=== PATIENT | male | born 1960 | race Caucasian/White ===

== ENCOUNTER 2020-01-26 05:38 | Emergency (ER) | payer BC, SELFPAY ==
[2020-01-26 05:42] VITALS: BP 102/81; PULSE 84; RESP 20; TEMP 36.6; O2SAT 97; BMI 31.0
--- NOTE | 2020-01-26 05:50 | CTR_ITS ---
PROCEDURE INFORMATION: Exam: CT Abdomen And Pelvis With Contrast Exam date and time: 01/26/2020 6:08 AM Age: 59 years old Clinical indication: Other: Blood in stool; Patient HX: Onset of severe low back pain with bloody stool yesterday. ; Additional info: Lower gi bleed TECHNIQUE: Imaging protocol: Computed tomography of the abdomen and pelvis with intravenous contrast. Radiation optimization: All CT scans at this facility use at least one of these dose optimization techniques: automated exposure control; mA and/or kV adjustment per patient size (includes targeted exams where dose is matched to clinical indication); or iterative reconstruction. Contrast material: OMNI 300; Contrast volume: 95 ml; Contrast route: INTRAVENOUS (IV); COMPARISON: No relevant prior studies available. RADIATION DOSE METRICS: Total DLP (mGy-cm): 1166.1 FINDINGS: Lungs: Tiny benign calcified granulomas are present in the lung bases. Mediastinal space: There is a small sliding hiatal hernia. Liver: There is an 8 mm benign cyst in the right lobe of the liver which is otherwise unremarkable.. No other mass. Gallbladder and bile ducts: Normal. No calcified stones. No ductal dilation. Pancreas: Normal. No ductal dilation. Spleen: Normal. No splenomegaly. Adrenals: Normal. No mass. Kidneys and ureters: Tiny vascular calcifications are present in the kidneys. There is no other nephrolithiasis. No renal masses are seen.. No hydronephrosis. Stomach and bowel: There is sigmoid diverticulosis. There is mild mural thickening of the descending and proximal sigmoid colon which may represent a colitis possibly infectious in nature. There is no other evidence of acute diverticulitis. There is no evidence of bowel obstruction.. Appendix: No evidence of appendicitis. Intraperitoneal space: Unremarkable. No free air. No significant fluid collection. Vasculature: There are atherosclerotic calcifications in the aorta and iliac arteries. No abdominal aortic aneurysm. Lymph nodes: Unremarkable. No enlarged lymph nodes. Urinary bladder: Unremarkable as visualized. Reproductive: Unremarkable as visualized. Bones/joints: Degenerative changes are present in the lumbar spine with scattered sclerosis and osteophytes. There is mild diffuse bulging of the L4-L5 disc. Soft tissues: Small fat containing inguinal hernias are present. CT/CT abdomen pelvis w con* [id number] IMPRESSION: 1. Sigmoid diverticulosis no definite focal diverticulitis. 2. Mural thickening of the descending and sigmoid colon consistent with colitis possibly infectious. 3. 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 4. Small hiatal hernia. Small bilateral inguinal hernias. Radiation Dose CTDIVOL = (mGy): DLP = 1166.1 (mGy-cm)
--- NOTE | 2020-01-26 05:59 | ED_ITS ---
HPI - GI Bleed General: Chief complaint: GI Bleed Stated complaint: back pain Time Seen by Provider: 01/26/20 05:50 History of Present Illness: HPI Narrative: 59-year-old male presents to the emergency room with complaints of blood in the stool he also has a lot of back pain he has had problems with chronic back pain in the past from the time is seem to pull muscles which caused severe back pain he does not have any pain radiating into his legs he denies any fecal incontinence or urinary retention. He is not had any vomiting or diarrhea but with several stools he has had some streaking of blood but is not discolored the toilet bowl. Is not noticed that he is passed any large clots. He is not on any anticoagulants. He is not previously been evaluated for blood loss. MD complaint: blood streaked stool Onset (ago): hour(s) Relieving factors: none Exacerbating factors: none Associated symptoms: Denies abdominal pain, chills, easy bruising, epistaxis, fever(s), headache(s), malaise, nausea, other bleeding, poor appetite, rash, syncope, vomiting or weakness Treatments Prior to Arrival: none Review of Systems Const: Denies: fever(s), chills or malaise ENMT: Denies: epistaxis Card: Denies: syncope Resp: Denies: dyspnea, productive cough or non-productive cough GI: Denies: abdominal pain, nausea or vomiting : Denies: flank pain, dysuria, urinary frequency or urinary urgency Skin/Breast: Denies: rash Neuro: Denies: headache(s) Zaid/Lymph: Denies: easy bruising [facility] ED PFSH: Medical History Chronic back pain Physical Exam Const: COMMON NORMALS: no acute distress GENERAL APPEARANCE: cooperative and comfortable ORIENTATION/CONSCIOUSNESS: Yes awake, Yes oriented to person, Yes oriented to place and Yes oriented to time HENMT: COMMON NORMALS: normocephalic, atraumatic and hearing grossly normal bilaterally HEAD & SCALP: normocephalic and atraumatic Eye: COMMON NORMALS: Equal, round and reactive pupils present, EOMs intact bilaterally, conjunctivae normal and no scleral icterus CONJUNCTIVA: Yes conjunctivae normal PUPIL: Yes Equal, round and reactive pupils present Neck/C-Spine: COMMON NORMALS: full ROM, no lymphadenopathy, supple and no JVD Resp: COMMON NORMALS: normal respiratory effort, No retractions, No use of accessory muscles and clear to auscultation bilaterally AUSCULTATION: clear to auscultation bilaterally Cardio: COMMON NORMALS: no JVD, regular rate, regular rhythm and No murmurs present (Cardio) RATE: regular rate RHYTHM: regular rhythm GI: COMMON NORMALS: Soft to palpation and No hepatosplenomegaly present AUSCULTATION: Yes normoactive bowel sounds PALPATION: Yes Soft to palpation, No Tenderness to palpation present (GI), No Guarding due to palpation present (GI) and Yes No hepatosplenomegaly present Extremity: COMMON NORMALS: normal to inspection, capillary refill normal, no clubbing, cyanosis or edema, no calf tenderness and no pedal edema Neuro: SENSORIUM/ORIENTATION: Yes oriented to person, Yes oriented to place and Yes oriented to time OTHER: Dorsum plantar flex strength 5/5 strength lower extremities normal sensation normal Skin: COMMON NORMALS: no rashes or lesions noted GENERAL SKIN EXAM: no rashes or lesions noted Course Vital Signs: Vital signs: Vital Signs Temperature 97.8 F 01/26/20 05:42 Pulse Rate 78 01/26/20 06:44 Respiratory Rate 16 01/26/20 06:44 Blood Pressure 114/78 01/26/20 06:44 Pulse Oximetry 96 01/26/20 06:44 MDM - GI Bleed MDM Narrative: Medical decision making narrative: Reviewed findings with the patient. Hemoglobin is stable CT shows evidence of colitis. Will treat with Cipro and Flagyl have him follow-up with surgery for colonoscopy sometime in the next 4 to 6 weeks. He tells me seeing either Dr. Encarnacion or Daniella in the past he cannot find a report since we changed over her EMR will have case management set him up for the colonoscopy return if he has worsening bleeding. Lab Data: Labs: Lab Results 01/26/20 01/26/20 01/26/20 Range/Units 05:50 05:50 05:50 WBC 6.7 (4.0-10.0) 10^3/ uL RBC 4.50 (4.1-5.3) 10^6/u L Hgb 14.4 (11.7-16.6) g/dL Hct 44.2 (42.0-52.0) % MCV 98.2 H (80-94) fL MCH 32.0 (28.0-34.0) pg MCHC 32.6 (30.0-36.0) g/dL RDW 12.1 (12.1-15.1) % Plt Count 289 (130-400) 10^3/c mm MPV 9.0 (7.4-10.4) fL Neut % (Auto) 64.6 % Lymph % (Auto) 19.6 % [place] % (Auto) 14.8 % Eos % (Auto) 0.3 % Baso % (Auto) 0.4 % Neut # (Auto) 4.31 (1.8-7.7) 10^3/u L Lymph # (Auto) 1.3 (0.8-4.8) 10^3/u L [place] # (Auto) 1.0 H (0.2-0.9) 10^3/u L Eos # (Auto) 0.0 (0.0-0.8) 10^3/u L Baso # (Auto) 0.0 (0.0-0.1) 10^3/u L Nucleated RBC % (a uto) 0 % Nucleated RBCs # 0.0 /100WBC PT 12.30 (12.1-14.9) SECO NDS INR 0.89 (0.8-1.2) Sodium 135 L (136-145) mmol/L Potassium 4.2 (3.5-5.1) mmol/L Chloride 95 L (98-107) mmol/L Carbon Dioxide 25 (22-29) mmol/L Anion Gap 19.2 H (5-19) BUN 21 H (6-20) mg/dL Creatinine 1.2 (0.7-1.2) mg/dL GFR Calculation 62.2 L (90-130) mL/min Glucose 124 H (65-115) mg/dL Calculated Osmolal ity 284 L (285-295) mOsm/k g Lactate (0.5-2.2) mmol/L Calcium 9.1 (8.5-10.5) mg/dL Total Bilirubin 0.2 (0.15-1.2) mg/dL AST 27 (0-40) U/L ALT 29 (0-41) U/L Alkaline Phosphata se 92 (40-130) IU/L Total Protein 7.6 (6.6-8.7) g/dL Albumin 4.4 (3.5-5.2) g/dL Globulin 3.2 (1.3-4.6) g/dL Urine Color (Yellow) Urine Appearance (CLEAR) Urine pH (5-7) Ur Specific Gravit y (1.005-1.030) Urine Protein (Negative) Urine Glucose (UA) (Normal) Urine Ketones (Negative) Urine Blood (Negative) Urine Nitrate (Negative) Urine Bilirubin (Negative) Urine Urobilinogen (Negative) mg/dL Ur Leukocyte Tanya ase (Negative) Urine RBC (0-2) /hpf Urine WBC (0-5) /hpf Ur Squamous Epith Cells (0-5) /hpf Amorphous Sediment /hpf Urine Bacteria (NONE) /hpf Urine Mucus /hpf 01/26/20 01/26/20 Range/Units 05:50 06:22 WBC (4.0-10.0) 10^3/ uL RBC (4.1-5.3) 10^6/u L Hgb (11.7-16.6) g/dL Hct (42.0-52.0) % MCV (80-94) fL MCH (28.0-34.0) pg MCHC (30.0-36.0) g/dL RDW (12.1-15.1) % Plt Count (130-400) 10^3/c mm MPV (7.4-10.4) fL Neut % (Auto) % Lymph % (Auto) % [place] % (Auto) % Eos % (Auto) % Baso % (Auto) % Neut # (Auto) (1.8-7.7) 10^3/u L Lymph # (Auto) (0.8-4.8) 10^3/u L [place] # (Auto) (0.2-0.9) 10^3/u L Eos # (Auto) (0.0-0.8) 10^3/u L Baso # (Auto) (0.0-0.1) 10^3/u L Nucleated RBC % (a uto) % Nucleated RBCs # /100WBC PT (12.1-14.9) SECO NDS INR (0.8-1.2) Sodium (136-145) mmol/L Potassium (3.5-5.1) mmol/L Chloride (98-107) mmol/L Carbon Dioxide (22-29) mmol/L Anion Gap (5-19) BUN (6-20) mg/dL Creatinine (0.7-1.2) mg/dL GFR Calculation (90-130) mL/min Glucose (65-115) mg/dL Calculated Osmolal ity (285-295) mOsm/k g Lactate 1.9 (0.5-2.2) mmol/L Calcium (8.5-10.5) mg/dL Total Bilirubin (0.15-1.2) mg/dL AST (0-40) U/L ALT (0-41) U/L Alkaline Phosphata se (40-130) IU/L Total Protein (6.6-8.7) g/dL Albumin (3.5-5.2) g/dL Globulin (1.3-4.6) g/dL Urine Color Yellow (Yellow) Urine Appearance Sl hazy (CLEAR) Urine pH 5 (5-7) Ur Specific Gravit y 1.020 (1.005-1.030) Urine Protein Trace (Negative) Urine Glucose (UA) Norm (Normal) Urine Ketones 1+ H (Negative) Urine Blood Neg (Negative) Urine Nitrate Negative (Negative) Urine Bilirubin Neg (Negative) Urine Urobilinogen Norm (Negative) mg/dL Ur Leukocyte Tanya ase Negative (Negative) Urine RBC Rare (0-2) /hpf Urine WBC 0-4 H (0-5) /hpf Ur Squamous Epith Cells 0-4 H (0-5) /hpf Amorphous Sediment 1+ /hpf Urine Bacteria Trace (NONE) /hpf Urine Mucus 2+ /hpf Discharge Plan Discharge Patient Disposition: Home Clinical Impression: Colitis Condition: Stable Prescriptions: New Cipro 500 mg tablet 500 mg PO BID 10 Days Qty: 20 RF: 0 Flagyl 500 mg tablet 500 mg PO Q8H 10 Days Qty: 30 RF: 0 Discharge Orders: Discharge Order (Routine); Ordered 01/26/20 Ordered By: Johny Pickard Referrals: Liborio Zhang MD [Primary Care Provider] - Discharge Diet: Usual diet Discharge Activity: Increase activity as tolerated Activity Restrictions/Additional Instructions: Clear liquid diet for 48 hours then advance. Follow-up with primary care provider you should have a colonoscopy done sometime in the next few months after this has resolved. Return if worsens. Coding Level of Care Code ED Technology Adoption Manager for Chg Fwd Exam Comprehensive
[2020-01-26] MEDS: sodium chloride 0.9% 500 ML IV (06:09)
[2020-01-26 06:15] LABS: Basophils % 0.4 %; Eosinophils % 0.3 %; Hematocrit 44.2 % (42.0-52.0); Hemoglobin 14.4 g/dL (11.7-16.6); Lymphocytes # 1.3 10^3/uL (0.8-4.8); Lymphocytes % 19.6 %; Mean Corpuscular HGB Conc 32.6 g/dL (30.0-36.0); Mean Corpuscular Volume 98.2 fL (80-94); Monocytes % 14.8 %; Neutrophils # 4.31 10^3/uL (1.8-7.7); Neutrophils % 64.6 %; Nucleated Red Blood Cells % 0 %; Platelet Count 289 10^3/cmm (130-400); Red Cell Distribution Width 12.1 % (12.1-15.1); White Blood Count 6.7 10^3/uL (4.0-10.0)
[2020-01-26 06:28] LABS: Alanine Aminotransferase 29 U/L (0-41); Albumin Level 4.4 g/dL (3.5-5.2); Alkaline Phosphatase 92 IU/L (40-130); Aspartate Amino Transferase 27 U/L (0-40); Blood Urea Nitrogen 21 mg/dL (6-20); Calcium 9.1 mg/dL (8.5-10.5); Carbon Dioxide 25 mmol/L (22-29); Chloride 95 mmol/L (98-107); Globulin 3.2 g/dL (1.3-4.6); Glomerular Filtration Rate 62.2 mL/min (90-130); Glucose 124 mg/dL (65-115); Lactate (Lactic Acid level) 1.9 mmol/L (0.5-2.2); Osmolality Calculated 284 mOsm/kg (285-295); Sodium 135 mmol/L (136-145); Total Bilirubin 0.2 mg/dL (0.15-1.2); Total Protein 7.6 g/dL (6.6-8.7)
[2020-01-26 06:30] LABS: Anion Gap 19.2 (5-19); Potassium 4.2 mmol/L (3.5-5.1)
[2020-01-26 06:33] LABS: INR 0.89 (0.8-1.2)
[2020-01-26 06:44] VITALS: BP 114/78; PULSE 78; RESP 16; O2SAT 96
[2020-01-26] MEDS: iohexol 300 mg/mL 100 mL Btl IV (06:53)
[2020-01-26 07:11] LABS: Glucose Urine UA Norm (Normal); Protein Urine Trace (Negative); Urine Appearance SL Hazy (CLEAR); Urine Color Yellow (Yellow); pH Urine 5 (5-7)
[2020-01-26 07:12] LABS: Add Urine Microscopic? YES; Bacteria Urine TRACE /hpf; Bilirubin Urine Neg (Negative); Blood Urine Neg (Negative); Ketones Urine 1+ (Negative); Leukocyte Esterase Urine Negative (Negative); Nitrate Urine Negative (Negative); RBC Urine RARE /hpf (0-2); Squamous Epithelial Cell Urine 0-4 /hpf (0-5); Urobilinogen Urine Norm (Negative); WBC Urine 0-4 /hpf (0-5)
[2020-01-26 07:13] LABS: Add Urine Culture? No; Amorphous Sediment Urine 1+ /hpf; Mucus Urine 2+ /hpf
[2020-01-26 07:53] VITALS: BP 120/73; PULSE 63; RESP 15; O2SAT 97
--- NOTE | 2020-01-26 09:24 | DCPLANNER ---
pharmacy benefit manager had message to schedule a follow up appointment for patient with general surgery. pharmacy benefit manager called [facility], spoke with Desire, gave clinic patients information. pharmacy benefit manager was told that patients information would be printed and reviewed. Clinic will call patient with appointment information.
--- NOTE | 2020-01-28 14:59 | DCPLANNER ---
Patient has a follow up appointment scheduled for Saturday, February 15, [address] at 2:[address] Hall. Clinic will call patient with appointment information.
--- NOTE | 2020-03-09 12:26 | DCPLANNER ---
Patient had a follow up appointment scheduled for 20 - patient did attend appointment.
== END 2020-01-26 07:54 | disposition home or self-care (01) ==
PROVIDERS: Emergency Provider Family Medicine; PCP Family Medicine
DX: K52.9 Noninfective gastroenteritis and colitis, unspecified (principal)
CPT/HCPCS: 12345; 74177; 80053; 81001; 83605; 85025; 85610; 96360; 99283; J7040; Q9967

== ENCOUNTER → 2020-03-11 12:47 | Outpatient (BNVA) | payer BC, SELFPAY | PROVIDERS: PCP Family Medicine; Visit Provider Surgery | DX: K57.90 Diverticulosis of intestine, part unspecified, without perforation or abscess without bleeding (principal) | CPT/HCPCS: 87635 ==

== ENCOUNTER 2020-03-16 08:17 | Day surgery (SDC) | payer BC, SELFPAY ==
[2020-03-14 13:56] VITALS: BMI 31.0
[2020-03-16 08:49] VITALS: BP 142/83; PULSE 51; RESP 18; TEMP 36; O2SAT 95
--- NOTE | 2020-03-16 09:00 | ANES.PREANE2 ---
Pre-Anesthetic Assessment Pre-Anesthetic Assessment: Height/Weight: Height 1.75 m Weight 95.254 kg Temp Pulse Resp BP Pulse Ox 96.8 F L 51 L 18 142/83 95 03/16/20 08:49 03/16/20 08:49 03/16/20 08:49 03/16/20 08:49 03/16/20 08:49 Preop Diagnosis: Colitis Proposed Procedure: Operation Date: 03/16/20 09:15 Proposed Procedures p Colonoscopy 43031 K57.90(Not Applicable) - Brandon Hall MD Familial anesthetic complications: None Was Beta Eleuterio taken within 24 hours: N/A Last intake: Intake Last Liquid Date 03/15/20 Last Liquid Time 23:00 Last Solid Date 03/14/20 Last Solid Time 10:30 Social: Social History: No alcohol and No tobacco Exam: Pre-Anes Outpt Exam: alert, oriented x 3, clear to auscultation bilaterally and regular rate & rhythm Airway: Cervical ROM: WNL MP: 4 Dentition: Full CV/HEM: CV/HEM: HTN Comments: echo 2016 - unremarkable, EF 60% GI: GI: Hiatus hernia Musc/skel: Musc/skel: Lower Back Pain (resolved now) Anesthetic Plan: ASA status: 2 Anesthesia: MAC Risk of > 500 ml blood loss (7ml/kg in children): No PFSH Anesthesia PFSH: Medical History Chronic back pain Family History Denies family history of Anesthesia complication Bleeding disorder Social History Smoking and tobacco status: never smoked Alcohol intake: current Data Anesthesia Cardiac Studies: No Data to Display
[2020-03-16] MEDS: sodium chloride 0.9% 1,000 ML 30 ML IV (09:04)
--- NOTE | 2020-03-16 10:14 | W.PM.OPSUD ---
Surgery/Procedure H&P Update DATE OF PROCEDURE: March 16, 2020 DATE H&P PERFORMED: 02/15/20 H&P UPDATE INFORMATION: I have reviewed H&P completed within last 30 days, I have examined patient prior to procedure and No changes to prior documentation PREOP DIAGNOSIS: Colitis PRIMARY INDICATION FOR PROCEDURE: The same PLANNED PROCEDURE: Operation Date: 03/16/20 09:15 Proposed Procedures p Colonoscopy [id number] K57.90(Not Applicable) - Brandon Hall MD
[2020-03-16 10:53] VITALS: BP 116/72; PULSE 69; RESP 16; TEMP 36.4; O2SAT 96
[2020-03-16 11:05] VITALS: BP 111/75; PULSE 66; RESP 18; O2SAT 96
--- NOTE | 2020-03-16 18:35 | ANE.PACU2 ---
Inpatient post-anesthesia follow up: Airway intact: Yes Vital signs: Temperature 97.6 F Pulse Rate 66 Respiratory Rate 18 Blood Pressure 111/75 Pulse Oximetry 96 Oxygen Delivery Me thod Room Air Oxygen Flow Rate Fraction of Inspir ed Oxygen Hydration adequate: Yes Nausea and vomiting: No Pain level: 2 Mental status: Baseline
== END 2020-03-16 11:16 | disposition home or self-care (01) ==
PROVIDERS: PCP Family Medicine; Visit Provider Surgery
PROC: 0DJD8ZZ Inspection of Lower Intestinal Tract, Via Natural or Artificial Opening Endoscopic (ICD-10-PCS; CPT 45378; principal; 2020-03-16 09:15)
DX: K52.9 Noninfective gastroenteritis and colitis, unspecified (principal); Z86.010 Personal history of colon polyps; K57.30 Diverticulosis of large intestine without perforation or abscess without bleeding; K62.1 Rectal polyp; I10 Essential (primary) hypertension; M47.896 Other spondylosis, lumbar region; K44.9 Diaphragmatic hernia without obstruction or gangrene; K40.20 Bilateral inguinal hernia, without obstruction or gangrene, not specified as recurrent
CPT/HCPCS: 12345; 45385; 88305; J2704; J7030

== ENCOUNTER 2020-07-01 18:51 | Emergency (ER) | payer OTHER, BC, SELFPAY ==
[2020-07-01 19:54] VITALS: BP 164/91; PULSE 84; RESP 16; TEMP 36.8; O2SAT 96; BMI 30.8
--- NOTE | 2020-07-01 19:59 | PC.NURSE ---
C-collar applied at this time.
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
[2020-07-01 23:13] VITALS: BP 154/90; PULSE 84; RESP 18; O2SAT 96
== END 2020-07-01 23:05 | disposition home or self-care (01) ==
PROVIDERS: Emergency Provider Physician Assistant; PCP Electrodiagnostic Medicine
DX: S16.1XXA Strain of muscle, fascia and tendon at neck level, initial encounter (principal); S39.012A Strain of muscle, fascia and tendon of lower back, initial encounter; V89.2XXA Person injured in unspecified motor-vehicle accident, traffic, initial encounter
CPT/HCPCS: 70450; 72125; 72128; 99283

== ENCOUNTER 2020-08-16 06:56 | Outpatient (CLI) | payer OTHER, SELFPAY ==
--- NOTE | 2020-08-16 07:03 | MR_ITS ---
WS: [id number] MRI THORACIC SPINE without contrast. HISTORY: THORACIC RADICULOPATHY, THORACIC REGION BACK PAIN COMPARISON: CT 07/01/2020 TECHNIQUE: Multiplanar sequences are performed in sagittal and axial planes. Very mild increase in thoracic kyphosis. Very small amount of edema and increased T2 signal in the an terior T8 vertebral body. Not a typical appearance for fracture. May be reactive marrow edema. Signal within the thoracic cord is normal. No cord atrophy or enlargement. Conus tapers normally and ends a t L1-2. T1-2: Normal. T2-3: Normal. T3-4: Shallow RIGHT paracentral disc protrusion without cord contact. T4-5: Shallow central disc protrusion and facet arthritis. No stenosis. T5-6: Normal. T6-7: Shallow central disc protrusion without stenosis. T7-8: Moderate-sized RIGHT and LEFT paracentral disc protrusions with near contact on the ventral co rd. No stenosis. T8-9: Moderate LEFT paracentral disc protrusion with near contact on the cord. T9-10: Bilateral mild facet joint arthritis. T10-11: Moderate bilateral facet joint arthritis with mild encroachment towards the thecal sac. Mild foraminal narrowing. T11-12: Normal. Paravertebral soft tissues are negative. MR/MR thoracic spin wo con* [id number] IMPRESSION: 1. Multilevel mild to moderate spondylitic changes in the thoracic spine. No h igh-grade stenosis. 2. Multilevel disc protrusions. Most significant disc protrusions at T7-8 and T8-9. Disc protrusions approach but do not contact or displace the thoracic cor d. 3. Small amount of marrow edema in the T8 vertebral body. Not a typical appear ance for fracture. May be reactive marrow edema. Early metastatic site not excl uded. For further evaluation consider follow-up thoracic spine with contrast or bone scan imaging for additional evaluation.
== END 2020-08-16 06:57 | disposition home or self-care (01) ==
LOC: RADSHAW 07:00
PROVIDERS: PCP Electrodiagnostic Medicine; Visit Provider Electrodiagnostic Medicine
DX: M54.14 Radiculopathy, thoracic region (principal); M62.838 Other muscle spasm; M51.24 Other intervertebral disc displacement, thoracic region; R60.0 Localized edema
CPT/HCPCS: 72146

== ENCOUNTER → 2020-09-02 09:05 | Outpatient (BNVA) | payer OTHER, SELFPAY | PROVIDERS: PCP Electrodiagnostic Medicine; Referring Provider Electrodiagnostic Medicine; Visit Provider Orthopaedic Surgery | DX: R52 Pain, unspecified (principal); M47.814 Spondylosis without myelopathy or radiculopathy, thoracic region; M47.812 Spondylosis without myelopathy or radiculopathy, cervical region | CPT/HCPCS: 72050; 72070 ==

== ENCOUNTER → 2022-04-30 07:49 | Outpatient (BNVA) | payer BC, SELFPAY | PROVIDERS: PCP Family Medicine; Visit Provider Family Medicine | DX: I10 Essential (primary) hypertension (principal); E78.5 Hyperlipidemia, unspecified | CPT/HCPCS: 80053; 80061 ==

== ENCOUNTER → 2023-05-14 08:39 | Outpatient (BNVA) | payer BC, SELFPAY | PROVIDERS: PCP Family Medicine; Visit Provider Family Medicine | DX: I10 Essential (primary) hypertension (principal); E78.5 Hyperlipidemia, unspecified; M54.9 Dorsalgia, unspecified; G89.29 Other chronic pain | CPT/HCPCS: 80053; 80061 ==

== ENCOUNTER → 2024-05-04 08:24 | Outpatient (BNVA) | payer BC, SELFPAY | PROVIDERS: PCP Family Medicine; Visit Provider Family Medicine | DX: I10 Essential (primary) hypertension (principal); E78.5 Hyperlipidemia, unspecified; Z00.00 Encounter for general adult medical examination without abnormal findings; R35.1 Nocturia | CPT/HCPCS: 80053; 80061; 84153 ==

== ENCOUNTER 2024-10-09 17:29 | Emergency (ER) | payer BC, SELFPAY ==
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
--- NOTE | 2024-10-09 17:43 | ECG_ITS ---
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
[2024-10-09 17:45] VITALS: BP 162/105; PULSE 70; RESP 14; TEMP 36.8; O2SAT 96; BMI 29.9
[2024-10-09 19:28] LABS: Hematocrit 43.2 % (37-53); Hemoglobin 14.30 g/dL (11.27-16.99); Mean Corpuscular HGB Conc 33.1 g/dL (30-55); Mean Corpuscular Hemoglobin 31.8 pg (27-33); Mean Corpuscular Volume 96.2 fl (82-101); Nucleated Red Blood Cells % 0 %; Platelet Count 238 10^3/cmm (157-399); Red Blood Count 4.49 10^6/uL (3.85-5.65); White Blood Count 7.09 10^3/uL (3.29-11.43)
[2024-10-09 19:47] LABS: Troponin(5th) Baseline < 6 ng/L (0-15)
[2024-10-09 19:49] LABS: Alanine Aminotransferase 24 U/L (0-41); Albumin Level 4.5 g/dL (3.5-5.2); Alkaline Phosphatase 71 U/L (40-130); Anion Gap 18.1 (5-19); Aspartate Amino Transferase 20 U/L (0-40); Blood Urea Nitrogen 13 mg/dL (8-23); Calcium 9.5 mg/dL (8.5-10.5); Carbon Dioxide 23 mmol/L (22-29); Chloride 100 mmol/L (98-107); Creatinine Clr Calc Pharmacy 121.0788; Globulin 2.7 g/dL (1.3-4.6); Glucose 82 mg/dL (65-115); Osmolality Calculated 283 mOsm/kg (285-295); Potassium 4.1 mmol/L (3.5-5.1); Sodium 137 mmol/L (136-145); Total Protein 7.2 g/dL (6.6-8.7)
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
[2024-10-09 20:21] VITALS: BP 151/91; PULSE 68; RESP 16; O2SAT 93
[2024-10-09 20:58] LABS: Glucose Urine UA Negative (Normal); Nitrate Urine Negative (Negative); Specific Gravity, Urine 1.005 (1.005-1.030)
[2024-10-09 21:00] VITALS: BP 137/90; PULSE 63; RESP 21; O2SAT 93
[2024-10-09 21:00] LABS: NT Pro B Type Natriuretic Pept 184 pg/mL (0-125); Thyroid Stimulating Hormone 0.81 uIU/mL (0.27-4.20)
--- NOTE | 2024-10-09 21:01 | ECG_ITS ---
[facility] Date: 2024-10-09 Pat Name: Froilan Faria Department: Room: Gender: Male Director Medical: : 1960 Requested By: Logan Diop Order Number: [id number] Reading MD: Measurements Intervals [place] Rate: 59 P: 151 SC: 198 QRS: 143 QRSD: 127 T: 165 QT: 429 QTc: 427 Interpretive Statements SINUS BRADYCARDIA ARM LEADS REVERSED [INVERTED P AND QRS IN I] Compared to ECG 10/09/2024 17:43:44 Sinus rhythm no longer present Indeterminate axis no longer present Right bundle-branch block no longer present [id number]
[2024-10-09 21:03] LABS: Add Urine Microscopic? YES
[2024-10-09 21:39] LABS: Troponin 5 2HR < 6.0 ng/L (0-15); Troponin 5 2HR Delta 0 ABS# (0-10)
[2024-10-09 22:00] VITALS: BP 138/87; PULSE 61; RESP 18; O2SAT 92
== END 2024-10-09 22:03 | disposition home or self-care (01) ==
PROVIDERS: Emergency Medicine; Emergency Provider Emergency Medicine; PCP Family Medicine
DX: I10 Essential (primary) hypertension (principal); R42 Dizziness and giddiness; E78.5 Hyperlipidemia, unspecified
CPT/HCPCS: 36415; 80053; 81001; 83880; 84443; 84484; 85025; 93005; 93010; 99284